=== PATIENT | male | born 1940 | race Caucasian/White ===

== ENCOUNTER 2016-09-22 09:10 | Emergency (ER) | payer MEDICARE, OTHER ==
[~2016-09-22 09:10] MED LIST changes: -ACETAMINOPHEN 1000 MG/100 ML VIAL IV ONE; -LACTATED RINGER'S 1000 ML INJ 1,000 ML ONE
[2016-09-22 09:12] VITALS: BP 170/83; PULSE 84; RESP 20; TEMP 97.5; O2SAT 97
--- NOTE | 2016-09-22 09:29 | PD ---
Physical Exam Date Seen by Provider: Sep 22, 2016 Time Seen by Provider: 09:25 Narrative Pt presents to the ED with an EKG from [facility], he states he was told to come to the ER for evaluation. Pt denies any chest pain, SOB, headache, abdominal pain, nausea. Pt has hx of HTN. Pt appears well, in no acute distress. BP mildly elevated otherwise VSS. EKG ordered. Pt awaiting bed placement. Data Data Last Documented VS Vital Signs Date Time Temp Pulse Resp B/P Pulse Ox O2 Delivery O2 Flow Rate FiO2 09/22/16 09:12 97.5 84 20 170/83 97 Room Air MDM Supervised Visit with DARIEN: Larisa Silva Sep 22, 2016 09:28
--- NOTE | 2016-09-22 16:24 | EKG ---
Date Performed: 09/22/2016 Time Performed: 09:34:48 PTAGE: 76 years EKG: ATRIAL FIBRILLATION SEPTAL MYOCARDIAL INFARCTION ABNORMAL ECG NO PREVIOUS TRACING DOCTOR: Millicent Kan Interpretating Date/Time 09/22/2016 16:21:41
== END 2016-09-22 10:27 | disposition left against medical advice (07) ==
LOC: NED 09:10
DX: R94.31 Abnormal electrocardiogram [ECG] [EKG] (principal); I10 Essential (primary) hypertension
CPT/HCPCS: 93005

== ENCOUNTER → 2016-09-22 | Day surgery (SDC) | payer MEDICARE ==
[~2016-09-22] MED LIST: ACETAMINOPHEN 1000 MG/100 ML VIAL IV ONE; LACTATED RINGER'S 1000 ML INJ 1,000 ML ONE; LISI2.5T3 PO; LORC10TA PO; STOO100C PO; [UNRECOGNIZED DRUG - CODE] RE
== END | disposition home or self-care (01) ==
LOC: ESDC 08:04
PROVIDERS: ATTEND Surgery
DX: D17.1 Benign lipomatous neoplasm of skin and subcutaneous tissue of trunk (principal); Z53.09 Procedure and treatment not carried out because of other contraindication; I48.91 Unspecified atrial fibrillation
CPT/HCPCS: 93005; G0463; 99211; J0131; J7120

== ENCOUNTER 2017-05-18 08:08 | Emergency (ER) | payer MEDICARE ==
[~2017-05-18] VITALS: Ht 182.9 cm; Wt 78.5 kg
[2017-05-18 08:17] VITALS: BP 144/95; PULSE 120; RESP 16; TEMP 99.1; O2SAT 98
[2017-05-18] MEDS ORDERED: WARF-23 PO (08:31)
[2017-05-18] MEDS ORDERED: WARF4TAB51 PO (08:31)
[2017-05-18] MEDS ORDERED: METO100T PO (08:31)
[2017-05-18] MEDS ORDERED: CART120C PO (08:31)
[2017-05-18] MEDS ORDERED: CYCL10TA PO (08:31)
[2017-05-18] MEDS ORDERED: LISI2.5T3 PO (08:31)
--- NOTE | 2017-05-18 08:49 | PD ---
HPI Chief Complaint: Allergic/Adverse Reaction Time Seen by Provider: 08:22 Travel History International Travel<30 days: No Contact w/Intl Traveler<30days: No Traveled to known affect area: No History of Present Illness HPI This is a 77-year-old male who presents to the emergency department with visual hallucinations. He said he was going to bed last night when he started to see red lights coming through his ahmadi and he thought there were cameras in his room and be poor looking into his room. He says that this happened to him once before earlier in the week and he thought it was a side effect of his medications. He stopped taking diltiazem because that was a new medicine for him but the symptoms recurred last night. Currently he feels fine and has no complaints. The holiday weekend so he can get in to see his doctor. His other medications are Flexeril, warfarin and metoprolol. PFSH Past Medical History Hx Anticoagulant Therapy: Yes (Lisinopril) Cancer: No Cardiovascular Problems: Yes (Afib) Diabetes: No Glaucoma: No Hepatitis: No Hiatal Hernia: No Hypertension: Yes Medical other: Yes (HX GI BLEED) Respiratory: Yes Thyroid Disease: No Influenza Vaccination: No Past Surgical History Oral Surgery: Yes (T & A) Pacemaker: No Tonsillectomy: Yes Other Surgery: Yes Social History Alcohol Use: No Tobacco Use: No Substance Use: No Allergies-Medications (Allergen,Severity, Reaction): Coded Allergies: aspirin (Unverified Allergy, Severe, GI BLEED HX, 05/18/17) PT DENIES THIS ALLERGY codeine (Unverified Allergy, Severe, INTERNAL BLEEDING, 05/18/17) Reported Meds & Prescriptions Reported Meds & Active Scripts Active Reported Cartia Xt (Diltiazem ER 24 HR) 120 Mg Caper 120 Mg PO DAILY Warfarin 2 Mg Tab 2 Mg PO T,, Warfarin 5 Mg Tab 5 Mg PO S,,,F Flexeril (Cyclobenzaprine HCl) 10 Mg Tab 10 Mg PO TID Metoprolol Tartrate 100 Mg Tab 100 Mg PO BID Lisinopril 2.5 Mg Tab 2.5 Mg PO DAILY Review of Systems Except as stated in HPI: all other systems reviewed are Neg Physical Exam Narrative GENERAL:Well appearing, no acute distress SKIN: Focused skin assessment warm and dry. HEAD: Atraumatic. Normocephalic. EYES: Pupils equal and round. No injection or drainage. ENT: Moist mucous membranes NECK: Trachea midline. CARDIOVASCULAR: Regular rate and rhythm. No murmur appreciated. RESPIRATORY: Clear to auscultation. Breath sounds equal bilaterally. GASTROINTESTINAL: Abdomen soft, non-tender, nondistended. MUSCULOSKELETAL: No obvious deformities. NEUROLOGICAL: Awake and alert. No obvious cranial nerve deficits. Moving all extremities. PSYCHIATRIC: Appropriate mood and affect; insight and judgment normal. Data Data Last Documented VS Vital Signs Date Time Temp Pulse Resp B/P (MAP) Pulse Ox O2 Delivery O2 Flow Rate FiO2 05/18/17 08:17 99.1 120 16 144/95 (111) 98 MDM Medical Decision Making Medical Screen Exam Complete: Yes Emergency Medical Condition: Yes Differential Diagnosis Medication side effect, psychiatric disorder, atrial fibrillation Narrative Course This is a 77-year-old male who presents to the emergency department with visual hallucinations. When reviewing his medication list he takes Flexeril which I suspect is the etiology of his symptoms. He otherwise appears very well and has no complaints. His heart rate is a little bit high. I suspect this is because he is not taking his Cardizem. I advised him to restart his Cardizem and discontinue Flexeril. I think he is appropriate for outpatient management and can follow-up with his primary care physician on Sunday. Diagnosis Primary Impression: Visual hallucinations Patient Instructions: General Instructions Additional Instructions: If you feel worse, feel unsafe at home, or chest pain or trouble breathing return to the emergency room. Follow-up with her primary care physician on Sunday. Stopped taking cyclobenzaprine. Restart your cardia. Med/Other Pt SpecificInfo: Existing Med Changed, Med Stopped Disposition: DISCHARGE HOME Condition: Stable Nisha Aponte MD May 18, 2017 08:49
== END 2017-05-18 08:58 | disposition home or self-care (01) ==
LOC: PHED 08:08
DX: R44.1 Visual hallucinations (principal); I10 Essential (primary) hypertension; I48.91 Unspecified atrial fibrillation; Z79.01 Long term (current) use of anticoagulants
CPT/HCPCS: 99282